=== PATIENT | female | born 1960 | race Caucasian/White ===

== ENCOUNTER 2017-05-04 12:29 | Day surgery (SDC) | payer OTHER, MEDICARE ==
[~2017-05-04] VITALS: Ht 149.9 cm; Wt 84.1 kg
[~2017-05-04 12:29] MED LIST: ALBUTEROL0.63 MG/3 IH; AMARYL4 MG PO; ASPIRIN325 MG PO; BUSPAR7.5 MG PO; COZAAR100 MG PO; ERGOCALCIF50000 UNIT PO; FENTANYL1 EAC4 TD; FLEXERIL10 MG PO; FLONASE16 G1 BOTH NARES; HYDROCHLOROTHIA25 MG PO; LOPRESSOR50 MG PO; LOSARTAN POTAS100 MG PO; METFORMIN HCL500 M1 PO; MICRONASE2.5 MG PO; NAPROSYN500 MG PO; OMEGA-3 ACID ETH1 GM PO; OMEPRAZOLE40 M1 PO; PRAVACHOL10 MG PO; PREDNISONE10 MG PO; PROAIR RESPICL90 MCG IH; PROBIOTIC1 EAC1 PO; SINGULAIR10 MG PO; THERALITH XR T1 EACH PO; VITAMIN C500 MG PO; VITAMIN E400 UNIT PO; XALATAN2.5 ML BOTH EYES; XANAX0.25 MG PO; ZOFRAN4 MG PO; ZYRTEC10 M2 PO
[2017-05-04 13:08] VITALS: BP 144/71
[2017-05-04 13:38] LABS: POINT-OF-CARE METER ID UU14174212
[2017-05-04 16:08] LABS: POINT-OF-CARE METER ID UU13113675
[2017-05-04 17:50] VITALS: BP 164/77
[2017-05-04 18:25] LABS: POINT-OF-CARE METER ID UU14174212
[2017-05-04 18:56] VITALS: BP 130/70
[2017-05-04 20:52] VITALS: BP 150/79
[2017-05-04 21:24] VITALS: BP 173/79
[2017-05-05] VITALS: BP 132/75
[2017-05-05 01:52] LABS: POINT-OF-CARE METER ID UU14162508
[2017-05-05 04:20] VITALS: BP 135/61
[2017-05-05 06:35] LABS: POINT-OF-CARE METER ID UU14162508
[2017-05-05 07:39] VITALS: BP 139/68
== END 2017-05-05 12:17 | disposition home or self-care (01) ==
LOC: SDC 12:29 → 2SOUTH 19:42 → 2EAST 19:42 → 2SOUTH 19:42 → ENRESERV 20:05 → 2EAST 21:15
PROVIDERS: Orthopaedic Surgery Sports Medicine
DX: S83.271A Complex tear of lateral meniscus, current injury, right knee, initial encounter (principal); M17.11 Unilateral primary osteoarthritis, right knee; M65.9 Synovitis and tenosynovitis, unspecified; E66.9 Obesity, unspecified; I10 Essential (primary) hypertension; J45.909 Unspecified asthma, uncomplicated; E11.9 Type 2 diabetes mellitus without complications; K21.9 Gastro-esophageal reflux disease without esophagitis; Z79.82 Long term (current) use of aspirin; Z88.2 Allergy status to sulfonamides; Z68.41 Body mass index [BMI] 40.0-44.9, adult; X58.XXXA Exposure to other specified factors, initial encounter
CPT/HCPCS: 82948; G0378; J0171; J1170; J1885; J2250; J2405; J2765; J3010; J7120; Q0169; Q0175